=== PATIENT | male | born 1945 | race Caucasian/White ===

== ENCOUNTER 2021-09-03 11:55 | Inpatient (IN) | payer MEDICARE ==
[~2021-09-03] VITALS: Ht 182.9 cm; Wt 87.1 kg
[2021-09-03 12:30] LABS: BASO % 0.2 % (0.0-1.0); HEMATOCRIT 52.8 % (42.0-52.0); HEMOGLOBIN 17.3 g/dl (13.5-17.5); LYMPH # 0.9 10^3/uL (1.5-5.0); LYMPH % 7.3 % (24.0-44.0); MEAN CORPUSCULAR HGB CONC 32.8 g/dl (32.0-36.5); MEAN CORPUSCULAR VOLUME 91.5 fl (80.0-96.0); MONO # 0.6 10^3/uL (0.0-0.8); NEUTROPHILS # 10.3 10^3/uL (1.5-8.5); NEUTROPHILS % 86.4 % (36.0-66.0); PLATELET COUNT, AUTOMATED 263 10^3/uL (150-450); RED BLOOD COUNT 5.77 10^6/uL (4.30-6.10); WHITE BLOOD COUNT 11.9 10^3/uL (4.0-10.0)
--- NOTE | 2021-09-03 12:31 | REP ---
INDICATION: Coronavirus workup. COMPARISON: None. TECHNIQUE: AP portable seated FINDINGS: Lung dickson show patchy peripheral infiltrates in the right mid lung zone, infrahilar right lower lobe and in the left lower lung zone just lateral to the heart border some underlying interstitial fibrotic changes are suggested. There is no pleural effusion. Heart not grossly enlarged. There is no pulmonary edema. The aorta is without gross aneurysm.. Some degenerative changes are noted in the spine and shoulders. No free air under the diaphragm. IMPRESSION: 1. Some underlying fibrosis but with superimposed patchy infiltrates in both lungs, some of them arrayed peripherally. These findings could certainly reflect effects of COVID pneumonia. No effusion. Heart and mediastinal contours unremarkable. No joselito edema. <Electronically signed by Saul Wilson > 09/03/21 [id number]
[2021-09-03 12:35] LABS: ABG BASE EXCESS 1.5 (-2.0-2.0); ABG O2 SATURATION 93.3 % (95.0-99.0); ABG PARTIAL PRESSURE CO2 29.1 mmHg (35.0-45.0); ABG PARTIAL PRESSURE O2 59.7 mmHg (75.0-100.0); ABG STANDARD HCO3 25.6 MEQ/L (22.0-26.0); ABG TOTAL CO2 23.9 MEQ/L (23.0-31.0); ABG pH (ARTERIAL) 7.516 UNITS (7.350-7.450)
[2021-09-03 13:17] LABS: ALBUMIN 2.7 GM/DL (3.2-5.2); ALT/SGPT 64 U/L (12-78); BILIRUBIN,TOTAL 1.4 MG/DL (0.2-1.0); BLOOD UREA NITROGEN 26 MG/DL (7-18); CALCIUM LEVEL 8.7 MG/DL (8.8-10.2); CARBON DIOXIDE LEVEL 27 MEQ/L (21-32); CHLORIDE LEVEL 98 MEQ/L (98-107); CK-MB VALUE MASS < 1.0 NG/ML (<3.6); CPK CREATINE PHOSPHOKINASE 124 U/L (39-308); CREATININE FOR GFR 1.06 MG/DL (0.70-1.30); FERRITIN 2528 NG/ML (26-388); GLOMERULAR FILTRATION RATE > 60.0 (>42); GLUCOSE, FASTING 114 MG/DL (70-100); LDH LACTATE DEHYDROGENASE 658 U/L (87-241); MB/CK RELATIVE INDEX 0.81 (< OR =4); POTASSIUM SERUM 4.2 MEQ/L (3.5-5.1); SODIUM LEVEL 134 MEQ/L (136-145); TOTAL PROTEIN 6.6 GM/DL (6.4-8.2); TROPONIN I 0.04 NG/ML (< 0.10)
[2021-09-03] MEDS ORDERED: VITMTA PO (13:22)
[2021-09-03] MEDS ORDERED: ISOVUE-370 76% 100ML VIAL As Ordered ONE (13:25)
[2021-09-03] MEDS ORDERED: HOME MED LIST COMPLETE! XX SCH (13:25)
--- OUTSIDE RECORDS SUMMARY | 2021-09-03 13:32 | CCD ---
Author Author [facility] Address Unknown Phone Unavailable Support Name Relationship Address Phone SELF Next Of Kin Unknown Unavailable ARTURO MOSQUEDA Next Of Kin [address] [place], [place] [id number] SUJIT MOSQUEDA Next Of Kin [address] [place] [address] Re-disclosure Warning The records that you are about to access may contain information from federally-assisted alcohol or drug abuse programs. If such information is present, then the following federally mandated warning applies: This information has been disclosed to you from records protected by federal confidentiality rules (42 CFR part 2). The federal rules prohibit you from making any further disclosure of this information unless further disclosure is expressly permitted by the written consent of the person to whom it pertains or as otherwise permitted by 42 CFR part 2. A general authorization for the release of medical or other information is NOT sufficient for this purpose. The Federal rules restrict any use of the information to criminally investigate or prosecute any alcohol or drug abuse patient.The records that you are about to access may contain highly sensitive health information, the redisclosure of which is protected by Article 27-F of the [facility] Public Health law. If you continue you may have access to information: Regarding HIV / AIDS; Provided by facilities licensed or operated by the [facility] Office of Mental Health; or Provided by the [facility] Office for People With Developmental Disabilities. If such information is present, then the following [facility] mandated warning applies: This information has been disclosed to you from confidential records which are protected by state law. State law prohibits you from making any further disclosure of this information without the specific written consent of the person to whom it pertains, or as otherwise permitted by law. Any unauthorized further disclosure in violation of state law may result in a fine or skilled nursing sentence or both. A general authorization for the release of medical or other information is NOT sufficient authorization for further disc losure. Medications No Information Insurance Providers Payer name Policy type / Coverage type Policy ID Covered constitution party ID Covered constitution party's relationship to murray Policy Murray Plan Information MEDICARE [id number] SP [id number] Problems, Conditions, and Diagnoses No Information Surgeries/Procedures No Information Results No Information Social History No Information
--- NOTE | 2021-09-03 14:18 | REP ---
INDICATION: COVID hypoxia, r/o PE. COMPARISON: Chest x-ray 09/03/2021. TECHNIQUE: CT angiogram chest performed following the intravenous administration of 75 cc of Isovue 370. Sagittal and coronal standard and MIP reconstruction images are provided. FINDINGS: Lungs: Patchy and confluent alveolar infiltrates are noted throughout the lung dickson, more dramatically demonstrated a than on the chest x-ray very dense right upper lobe, left upper lobe and infrahilar/lower lobe areas as on radiograph but other patchy and predominantly peripheral infiltrates seen I do not see pleural effusions. No pleural thickening or calcified pleural plaques. No definite nodules. Mediastinum: AP window, precarinal, right paratracheal and subcarinal adenopathy near cm in size noted. Smaller were right paratracheal nodes are seen. Pulmonary arteries: The main, right and left pulmonary arteries in the mediastinum show no filling defect. Visible lobar arteries are also without filling defects. Misregistration artifacts from respiratory motion limit evaluation of segmental and subsegmental arteries. Betty: Up to 10 mm nodes at the right hilum and 10.5 mm at the left. Axilla: No pathologic sized adenopathy. Pleura: No effusion, calcified pleural plaques or pleural based mass. Heart: Not grossly enlarged but there is some left atrial enlargement. No pericardial thickening or effusion. Thoracic aorta: Atherosclerotic plaque at the arch without aneurysm or dissection. Upper abdominal structures: There is no hiatal hernia. Fatty change of the liver noted. No gross hepatosplenomegaly or focal lesion. No ascites portion of gallbladder, pancreas, upper poles of the kidney and bowel loops seen were unremarkable. Visualized osseous structures: Marginal osteophytes throughout the thoracic spine with no compression deformity or destructive lesion. Sternum, manubrium, ribs, medial clavicles, visualized portions of the scapula and humeral head seen were unremarkable. IMPRESSION: No CT evidence of pulmonary embolism in the mediastinal and lobar pulmonary arteries. Respiratory motion causing misregistration artifact severely limits the segmental and subsegmental artery evaluation. Extensive bilateral confluent and patchy infiltrates scattered throughout the lung dickson, many of them arrayed peripherally. This pattern is commonly seen in COVID pneumonia. There is no effusion, pneumothorax, calcified pleural plaque or other acute lung finding. Some mediastinal hilar adenopathy as described, felt to be reactive. Aorta without aneurysm or dissection. Some degenerative changes in the spine without acute bony findings. Upper abdominal structures grossly unremarkable. <Electronically signed by Saul Wilson > 09/03/21 [id number]
[2021-09-03] MEDS ORDERED: NS 1,000 ML IV ONE (15:15)
--- OUTSIDE RECORDS SUMMARY | 2021-09-03 15:15 | CCD ---
Author Author [facility] Address Unknown Phone Unavailable Support Name Relationship Address Phone SELF Next Of Kin Unknown Unavailable ARTURO MOSQUEDA Next Of Kin [address] [place], [place] [id number] SUJIT MOSQUEDA Next Of Kin [address] [place] [address] Re-disclosure Warning The records that you are [...] is protected by Article 27-F of the [facility] Public Health law. If you continue you may have access to information: Regarding HIV / AIDS; Provided by facilities licensed or operated by the [facility] Office of Mental Health; or Provided by the [facility] Office for People With Developmental Disabilities. If such information is present, then the following [facility] mandated warning applies: This information has been [...] law may result in a fine or alf sentence or both. A general authorization for the release of medical or other information is NOT sufficient authorization for further disc losure. Medications No Information Insurance Providers Payer name Policy type / Coverage type Policy ID Covered republican ID Covered republican's relationship to murray Policy Murray Plan Information MEDICARE [id number] SP [id number] Problems, Conditions, and Diagnoses No Information Surgeries/Procedures No Information Results No Information Social History No Information
[2021-09-03] MEDS ORDERED: LABETALOL 100MG/20ML VIAL IV PRN (15:20)
--- NOTE | 2021-09-03 15:29 | HPEPDOC ---
General Date of Admission Sep 03, 2021 at 15:03 Date of Service: Sep 03, 2021 Chief Complaint The patient is a 76-year-old male admitted with a reason for visit of Acute Hypoxemic Respiratory Failure Due To Covid19. Source: Patient History of Present Illness Patient is 76 years old male without significant past medical history who did not see it doctors for years presented to hospital with generalized weakness. Patient stated that he has been having generalized weakness for past week associated with some dry intermittent cough. He is generalized weakness became progressively worse for past 3 to 4 days. In ER patient was found to have hypoxia with oxygen saturation around 70s he was placed on the 6 L of oxygen via nasal cannula. He systolic blood pressure was elevated to 177, and he was tachycardic with heart rate 110, white blood count of 11.9, D-dimer 3161, lactic acid 2.8, CT showed No CT evidence of pulmonary embolism in the mediastinal and lobar pulmonary arteries. Respiratory motion causing misregistration artifact severely limits the segmental and subsegmental artery evaluation. Extensive bilateral confluent and patchy infiltrates scattered throughout the lung dickson, many of them arrayed peripherally. Patient was tested positive for COVID-19 Home Medications Scheduled Multivitamins (Thera M Plus Tablet) 1 Each Tablet, 1 TAB PO DAILY, (Reported) Allergies Coded Allergies: No Known Allergies (Unverified , 09/03/21) Past Medical History Medical History No significant medical history Family History I personally reviewed family history and found not pertinent Social History * Smoker: Denies Alcohol: Denies Drugs: denies A-FIB/CHADSVASC A-FIB History Current/History of A-Fib/PAF?: No Current PO Anticoag Therapy: No Review of Systems Constitutional: Reports: Weakness, Fatigue; Denies: Fever Eyes: Denies: Pain ENT: Denies: Head Aches Skin: Denies: Rash Pulmonary: Reports: Dyspnea, Cough Cardiovascular: Denies: Chest Pain Gastrointestinal: Denies: Nausea Genitourinary: Denies: Dysuria Hematologic: Denies: Bruising Endocrine: Denies: Polydipsia Musculoskeletal: Denies: Neck Pain Neurological: Denies: Weakness Psych: Reports: Mood Normal Physical Examination General Exam: Positive: Alert, Cooperative Eye Exam: Positive: PERRLA ENT Exam: Positive: Atraumatic Neck Exam: Positive: Supple; Negative: JVD Chest Exam: Positive: Diminished Heart Exam: Positive: Tachycardic; Negative: Rate Normal Telemetry: Positive: Sinus Abdomen Exam: Positive: Normal bowel sounds Extremity Exam: Negative: Clubbing Skin Exam: Positive: Nl turgor and temperature Neuro Exam: Positive: Normal Gait Psych Exam: Positive: Mental status NL Vital Signs Vital Signs Date Time Temp Pulse Resp B/P (MAP) Pulse Ox O2 Delivery O2 Flow Rate FiO2 09/03/21 15:00 109 172/81 (111) 09/03/21 14:45 24 91 Nasal Cannula 6.0 09/03/21 12:10 97.5 Laboratory Data Labs 24H Laboratory Tests 2 09/03/21 12:17: Immature Granulocyte % (Auto) 1.1, Neutrophils (%) (Auto) 86.4H, Lymphocytes (%) (Auto) 7.3L, Monocytes (%) (Auto) 5.0, Eosinophils (%) (Auto) 0.0, Basophils (%) (Auto) 0.2, Neutrophils # (Auto) 10.3H, Lymphocytes # (Auto) 0.9L, Monocytes # (Auto) 0.6, Eosinophils # (Auto) 0.0, Basophils # (Auto) 0.0, Nucleated Red Blood Cells % (auto) 0.0, D-Dimer, Quantitative 3161.89H, Anion Gap 9, Glomerular Filtration Rate > 60.0, Lactic Acid Level 2.8*H, Calcium Level 8.7L, Ferritin 2528H, Total Bilirubin 1.4H, Aspartate Amino Transf (AST/SGOT) 77H, Alanine Aminotransferase (ALT/SGPT) 64, Alkaline Phosphatase 52, Lactate Dehydrogenase 658H, Total Creatine Kinase 124, Creatine Kinase MB < 1.0, Creatine Kinase MB Relative Index 0.81, Troponin I 0.04, C-Reactive Protein, Quantitative 17.30H, Total Protein 6.6, Albumin 2.7L, Albumin/Globulin Ratio 0.7 09/03/21 12:19: Blood Gas Bicarbonate Standard 25.6, Arterial Blood pH 7.516H, Arterial Blood P artial Pressure CO2 29.1L, Arterial Blood Partial Pressure O2 59.7L, Arterial Blood Total CO2 23.9, Arterial Blood HCO3 23.0, Arterial Blood Base Excess 1.5, Arterial Blood Oxygen Saturation 93.3L CBC/BMP Laboratory Tests 09/03/21 12:17 Microbiology Microbiology 09/03/21 Blood Culture, Received Pending 09/03/21 Respiratory Virus Panel (PCR) (SANDRA) - Final, Complete SARS-CoV-2 (COVID 19) 09/03/21 Blood Culture, Received Pending Assessment/Plan Patient is 76 years old male without significant past medical history who did not see it doctors for years presented to hospital with generalized weakness. P atient stated that he has been having generalized weakness for past week associated with some dry intermittent cough. He is generalized weakness became progressively worse for past 3 to 4 days. In ER patient was found to have hypoxia with oxygen saturation around 70s he was placed on the 6 L of oxygen via nasal cannula. He systolic blood pressure was elevated to 177, and he was tachycardic with heart rate 110, white blood count of 11.9, D-dimer 3161, lactic acid 2.8, CT showed No CT evidence of pulmonary embolism in the mediastinal and lobar pulmonary arteries. Respiratory motion causing misregistration artifact severely limits the segmental and subsegmental artery evaluation. Extensive b ilateral confluent and patchy infiltrates scattered throughout the lung dickson, many of them arrayed peripherally. Patient was tested positive for COVID-19 Problems (1) Acute hypoxemic respiratory failure due to COVID-19 Status: Acute Problem Text: Secondary to COVID-19 Labs according to COVID-19 protocol Baricitinib, dexamethasone IV, remdesivir IV Encouraged for prone position PT/OT (2) Pneumonia due to COVID-19 virus Status: Acute Problem Text: See above Incentive spirometry (3) Hypertensive urgency Status: Acute Problem Text: Labetalol IV as needed Lisinopril 20 mg (4) ARDS (adult respiratory distress syndrome) Status: Acute Problem Text: Secondary to COVID-19 pneumonia Patient has bilateral opacities increased oxygen requirements to 6 L of oxygen Plan / VTE VTE Prophylaxis Ordered?: Yes AURA HAYDEN DO Sep 03, 2021 15:29
[2021-09-03 15:34] VITALS: BP 166/70
[2021-09-03] MEDS: dexameTHASONE 4 MG/ML 1ML VIAL (J1100 PER 1MG) IV SCH (15:34)
[2021-09-03] MEDS: ACETAMINOPHEN TAB 650MG DOSE (2X325MG) PO PRN (15:40)
[2021-09-03 17:25] VITALS: BP 112/64; O2SAT 94
[2021-09-03] MEDS ORDERED: REMDESIVIR 200 MG in NS 250 ML IV ONE (19:00)
[2021-09-03] MEDS ORDERED: SODIUM CHLORIDE 0.9% INJ 10 ML SYR IV ONE (19:00)
[2021-09-03 20:00] VITALS: O2SAT 88
[2021-09-03 20:05] VITALS: O2SAT 90
[2021-09-03 20:10] VITALS: O2SAT 93
--- NOTE | 2021-09-03 20:28 | ECGEPIP ---
[facility] - ED Test Date: 2021-09-03 Pat Name: CARMENCITA MOSQUEDA Department: Room: - Gender: Male [employer] Driver: AMEE : 1945 Requested By: Jimmy Sampson Order Number: [id number] Reading MD: Jimmy Jimenez Measurements Intervals [place] Rate: 117 P: 24 VA: 146 QRS: -12 QRSD: 122 T: -1 QT: 342 QTc: 477 Interpretive Statements Sinus tachycardia with occasional premature ventricular complexes Right bundle branch block NO PRIORS FOR COMPARISON Electronically Signed on 09-03-2021 20:27:53 EST by Jimmy Jimenez
[2021-09-03] MEDS: BARICITINIB 2MG TABLET (OLUMIANT) FOR EUA PO SCH (21:07)
[2021-09-03] MEDS: ENOXAPARIN 40MG/0.4ML SYRINGE (J1650 PER 10MG) SC SCH (21:09)
[2021-09-03 21:15] VITALS: BP 107/63
[2021-09-04] VITALS (11 sets, daily range): BP systolic 130–135; BP diastolic 56–73; O2SAT 85–96
[2021-09-04] MEDS ORDERED: IPRATROPIUM 0.5MG/ALBUTEROL 2.5MG INH SOL UD 3ML (DUONEB) NEB PRN (05:10)
[2021-09-04 05:35] LABS: VENOUS BASE EXCESS 1.7 (-2.0-2.0); VENOUS HCO3 23.7 MEQ/L (23.0-27.0); VENOUS O2 SATURATION 85.6 % (60.0-80.0); VENOUS PARTIAL PRESSURE CO2 30.6 mmHg (38.0-50.0); VENOUS PARTIAL PRESSURE O2 45.6 mmHg (30.0-50.0); VENOUS PH 7.506 UNITS (7.330-7.430); VENOUS STANDARD HCO3 25.6 MEQ/L; VENOUS TOTAL CO2 24.6 MEQ/L (24.0-28.0)
[2021-09-04 05:46] LABS: BASO % 0.1 % (0.0-1.0); HEMATOCRIT 47.1 % (42.0-52.0); HEMOGLOBIN 15.7 g/dl (13.5-17.5); LYMPH % 9.8 % (24.0-44.0); MEAN CORPUSCULAR HEMOGLOBIN 30.4 pg (27.0-33.0); MEAN CORPUSCULAR HGB CONC 33.3 g/dl (32.0-36.5); MEAN CORPUSCULAR VOLUME 91.1 fl (80.0-96.0); MONO # 0.6 10^3/uL (0.0-0.8); MONO % 5.9 % (2.0-8.0); NEUTROPHILS # 8.5 10^3/uL (1.5-8.5); NEUTROPHILS % 83.1 % (36.0-66.0); PLATELET COUNT, AUTOMATED 251 10^3/uL (150-450); RED BLOOD COUNT 5.17 10^6/uL (4.30-6.10); WHITE BLOOD COUNT 10.2 10^3/uL (4.0-10.0)
[2021-09-04 06:13] LABS: ALBUMIN 2.1 GM/DL (3.2-5.2); ALT/SGPT 59 U/L (12-78); BILIRUBIN,TOTAL 0.9 MG/DL (0.2-1.0); BLOOD UREA NITROGEN 28 MG/DL (7-18); CALCIUM LEVEL 8.6 MG/DL (8.8-10.2); CARBON DIOXIDE LEVEL 28 MEQ/L (21-32); CHLORIDE LEVEL 105 MEQ/L (98-107); CREATININE FOR GFR 0.73 MG/DL (0.70-1.30); GLOMERULAR FILTRATION RATE > 60.0 (>42); GLUCOSE, FASTING 122 MG/DL (70-100); MAGNESIUM LEVEL 2.4 MG/DL (1.8-2.4); POTASSIUM SERUM 3.8 MEQ/L (3.5-5.1); SODIUM LEVEL 139 MEQ/L (136-145); TOTAL PROTEIN 6.1 GM/DL (6.4-8.2)
[2021-09-04 06:23] LABS: ABG BASE EXCESS -0.7 (-2.0-2.0); ABG HCO3 21.9 MEQ/L (22.0-26.0); ABG O2 SATURATION 88.4 % (95.0-99.0); ABG PARTIAL PRESSURE CO2 30.8 mmHg (35.0-45.0); ABG PARTIAL PRESSURE O2 51.7 mmHg (75.0-100.0); ABG STANDARD HCO3 23.7 MEQ/L (22.0-26.0); ABG TOTAL CO2 22.8 MEQ/L (23.0-31.0); ABG pH (ARTERIAL) 7.469 UNITS (7.350-7.450)
--- NOTE | 2021-09-04 06:46 | REPVR ---
PROCEDURE INFORMATION: Exam: XR Chest Exam date and time: 09/04/2021 6:26 AM Age: 76 years old Clinical indication: Cough; Additional info: Acute desat TECHNIQUE: Imaging protocol: XR of the chest. Views: 1 view. COMPARISON: CT ANGIO CHEST 09/03/2021 1:29 PM FINDINGS: Lungs: Extensive patchy bilateral ground-glass and reticulonodular opacities. Pleural spaces: Unremarkable. No pleural effusion. No pneumothorax. Heart/Mediastinum: Cardiomegaly. Bones/joints: Multilevel degenerative disease of the thoracic spine. Degenerative changes in the right shoulder. IMPRESSION: Extensive patchy bilateral ground-glass and reticulonodular opacities. Electronically signed by: Bernardo Eng On 09/04/2021 06:45:39 AM
[2021-09-04] MEDS: ENOXAPARIN 40MG/0.4ML SYRINGE (J1650 PER 10MG) SC SCH ×2 (08:21→21:27)
[2021-09-04] MEDS: BARICITINIB 2MG TABLET (OLUMIANT) FOR EUA PO SCH (08:22)
[2021-09-04] MEDS: guaiFENesin ER 600 MG TAB PO SCH ×2 (08:22→21:26)
[2021-09-04] MEDS: dexameTHASONE 4 MG/ML 1ML VIAL (J1100 PER 1MG) IV SCH (08:22)
--- NOTE | 2021-09-04 13:24 | IPNPDOC ---
Text Note Date of Service The patient was seen on 09/04/21. NOTE Subjective: No any acute events overnight. Patient's oxygen requirement sign ificantly increased, he is on 25 L FiO2 75%. Objective: GENERAL APPEARANCE: NAD HEENT: no scleral icterus, no JVD, EOMI CARDIOVASCULAR: S1S2 LUNGS: Diminished lung sounds bilaterally ABDOMEN: soft & not tender w palpation MUSCULOSKELETAL: no cyanosis, no swelling INTEGUMENT: no generalized pallor NEUROLOGICAL: cranial nerve function from 2-12 intact, follows commands, speech not dysarthric Assessment/Plan Patient is 76 years old male without significant past medical history who did not see it doctors for years presented to hospital with generalized weakness. Patient stated that he has been having generalized weakness for past week assoc iated with some dry intermittent cough. He is generalized weakness became progressively worse for past 3 to 4 days. In ER patient was found to have hypoxia with oxygen saturation around 70s he was placed on the 6 L of oxygen via nasal cannula. He systolic blood pressure was elevated to 177, and he was tachycardic with heart rate 110, white blood count of 11.9, D-dimer 3161, lactic acid 2.8, CT showed No CT evidence of pulmonary embolism in the mediastinal and lobar pulmonary arteries. Respiratory motion causing misregistration artifact severely limits the segmental and subsegmental artery evaluation. Extensive bilateral confluent and patchy infiltrates scattered throughout the lung dickson, many of them arrayed peripherally. Patient was tested positive for COVID-19 Problems (1) Acute hypoxemic respiratory failure due to COVID-19 Secondary to COVID-19 Labs according to COVID-19 protocol Baricitinib, dexamethasone IV, remdesivir IV day 1 Encouraged for prone position PT/OT (2) Pneumonia due to COVID-19 virus See above Incentive spirometry (3) Hypertensive urgency Resolved Labetalol IV as needed Lisinopril 20 mg (4) ARDS (adult respiratory distress syndrome) Secondary to COVID-19 pneumonia Patient has bilateral opacities increased oxygen requirements to 6 L of oxygen Plan / VTE VTE Prophylaxis Ordered?: Yes VS,Fishbone, I+O VS, Fishbone, I+O Laboratory Tests 09/04/21 05:27 Vital Signs Date Time Temp Pulse Resp B/P (MAP) Pulse Ox O2 Delivery O2 Flow Rate FiO2 09/04/21 10:52 93 HVNI-Vapotherm 25.0 75 09/04/21 06:00 97.4 92 22 133/72 (92) I&O- Last 24 Hours up to 6 AM 09/04/21 06:00 Intake Total 1790 ml Balance 1790 ml AURA HAYDEN DO Sep 04, 2021 13:24
[2021-09-04] MEDS: SODIUM CHLORIDE 0.9% INJ 10 ML SYR IV SCH (18:16)
[2021-09-04] MEDS: REMDESIVIR 100 MG in NS 250 ML IV SCH (18:16)
[2021-09-04] MEDS: ACETAMINOPHEN TAB 650MG DOSE (2X325MG) PO PRN (23:25)
[2021-09-05] VITALS: O2SAT 94
[2021-09-05 04:00] VITALS: BP 124/61; O2SAT 93
[2021-09-05 07:08] LABS: BASO % 0.1 % (0.0-1.0); EOS % 0.1 % (0.0-3.0); HEMATOCRIT 43.5 % (42.0-52.0); HEMOGLOBIN 14.6 g/dl (13.5-17.5); LYMPH # 1.1 10^3/uL (1.5-5.0); LYMPH % 7.7 % (24.0-44.0); MEAN CORPUSCULAR HEMOGLOBIN 30.6 pg (27.0-33.0); MEAN CORPUSCULAR HGB CONC 33.6 g/dl (32.0-36.5); MEAN CORPUSCULAR VOLUME 91.2 fl (80.0-96.0); MONO # 0.9 10^3/uL (0.0-0.8); MONO % 6.2 % (2.0-8.0); NEUTROPHILS # 12.5 10^3/uL (1.5-8.5); NEUTROPHILS % 84.9 % (36.0-66.0); PLATELET COUNT, AUTOMATED 272 10^3/uL (150-450); RED BLOOD COUNT 4.77 10^6/uL (4.30-6.10); WHITE BLOOD COUNT 14.7 10^3/uL (4.0-10.0)
[2021-09-05 07:24] LABS: INR 1.16; PROTHROMBIN TIME 15.2 SECONDS (12.7-14.5)
[2021-09-05 07:25] LABS: PARTIAL THROMBOPLASTIN TIME 31.4 SECONDS (25.9-37.0)
[2021-09-05 07:27] LABS: ALT/SGPT 90 U/L (12-78); BILIRUBIN,DIRECT 0.5 MG/DL (0.0-0.2); BILIRUBIN,TOTAL 0.9 MG/DL (0.2-1.0); BLOOD UREA NITROGEN 28 MG/DL (7-18); CALCIUM LEVEL 8.3 MG/DL (8.8-10.2); CARBON DIOXIDE LEVEL 25 MEQ/L (21-32); CHLORIDE LEVEL 106 MEQ/L (98-107); CPK CREATINE PHOSPHOKINASE 91 U/L (39-308); CREATININE FOR GFR 0.72 MG/DL (0.70-1.30); FERRITIN 1777 NG/ML (26-388); GLOMERULAR FILTRATION RATE > 60.0 (>42); GLUCOSE, FASTING 98 MG/DL (70-100); LDH LACTATE DEHYDROGENASE 406 U/L (87-241); NT-PRO BNP 512 PG/ML (<450); POTASSIUM SERUM 3.7 MEQ/L (3.5-5.1); SODIUM LEVEL 137 MEQ/L (136-145); TOTAL PROTEIN 5.8 GM/DL (6.4-8.2); TROPONIN I 0.03 NG/ML (< 0.10)
[2021-09-05] MEDS: BARICITINIB 2MG TABLET (OLUMIANT) FOR EUA PO SCH (08:38)
[2021-09-05] MEDS: guaiFENesin ER 600 MG TAB PO SCH ×2 (08:38→19:56)
[2021-09-05] MEDS: ENOXAPARIN 40MG/0.4ML SYRINGE (J1650 PER 10MG) SC SCH ×2 (08:38→19:56)
[2021-09-05] MEDS: dexameTHASONE 4 MG/ML 1ML VIAL (J1100 PER 1MG) IV SCH (08:38)
--- NOTE | 2021-09-05 13:44 | IPNPDOC ---
Text Note Date of Service The patient was seen on 09/05/21. NOTE Subjective: No any acute events overnight. Patient's oxygen requirements 25 L FiO2 60%. Patient reported insomnia Objective: GENERAL APPEARANCE: NAD HEENT: no scleral icterus, no JVD, EOMI CARDIOVASCULAR: S1S2 LUNGS: Diminished lung sounds bilaterally ABDOMEN: soft & not tender w palpation MUSCULOSKELETAL: no cyanosis, no swelling INTEGUMENT: no generalized pallor NEUROLOGICAL: cranial nerve function from 2-12 intact, follows commands, speech not dysarthric Assessment/Plan Patient is 76 years old male without significant past medical history who did not see it doctors for years presented to hospital with generalized weakness. Patient stated that he has been having generalized weakness for past week associated with some dry intermittent cough. He is generalized weakness became progressively worse for past 3 to 4 days. In ER patient was found to have hypoxia with oxygen saturation around 70s he was placed on the 6 L of oxygen via nasal cannula. He systolic blood pressure was elevated to 177, and he was tachycardic with heart rate 110, white blood count of 11.9, D-dimer 3161, lactic acid 2.8, CT showed No CT evidence of pulmonary embolism in the mediastinal and lobar pulmonary arteries. Respiratory motion causing misregistration artifact severely limits the segmental and subsegmental artery evaluation. Extensive bilateral confluent and patchy infiltrates scattered throughout the lung dickson, many of them arrayed peripherally. Patient was tested positive for COVID-19 Problems (1) Acute hypoxemic respiratory failure due to COVID-19 Secondary to COVID-19 Labs according to COVID-19 protocol Baricitinib, dexamethasone IV, remdesivir IV day 2 Encouraged for prone position PT/OT (2) Pneumonia due to COVID-19 virus See above Incentive spirometry (3) Hypertensive urgency Resolved Labetalol IV as needed Lisinopril 20 mg (4) ARDS (adult respiratory distress syndrome) Secondary to COVID-19 pneumonia Insomnia Rozerem nightly Plan / VTE VTE Prophylaxis Ordered?: Yes VS,Belkis, I+O VS, Axelbone, I+O Laboratory Tests 09/05/21 06:45 09/05/21 06:46 Vital Signs Date Time Temp Pulse Resp B/P (MAP) Pulse Ox O2 Delivery O2 Flow Rate FiO2 09/05/21 08:40 25.0 60 09/05/21 04:00 98.2 100 18 124/61 (82) 94 09/05/21 04:00 HVNI-Vapotherm I&O- Last 24 Hours up to 6 AM 09/05/21 05:59 Intake Total 960 ml Output Total 1350 ml Balance -390 ml AURA HAYDEN DO Sep 05, 2021 13:44
[2021-09-05 14:00] VITALS: BP 124/71
[2021-09-05] MEDS: REMDESIVIR 100 MG in NS 250 ML IV SCH (18:37)
[2021-09-05] MEDS: SODIUM CHLORIDE 0.9% INJ 10 ML SYR IV SCH (18:38)
[2021-09-05] MEDS: RAMELTEON 8 MG TAB (ROZEREM) PO SCH (19:56)
[2021-09-05 22:00] VITALS: BP 114/65
[2021-09-06 06:00] VITALS: BP 126/54
[2021-09-06 08:00] LABS: BASO % 0.3 % (0.0-1.0); EOS % 0.2 % (0.0-3.0); HEMATOCRIT 44.7 % (42.0-52.0); HEMOGLOBIN 14.6 g/dl (13.5-17.5); LYMPH # 1.4 10^3/uL (1.5-5.0); LYMPH % 9.5 % (24.0-44.0); MEAN CORPUSCULAR HEMOGLOBIN 30.3 pg (27.0-33.0); MEAN CORPUSCULAR HGB CONC 32.7 g/dl (32.0-36.5); MEAN CORPUSCULAR VOLUME 92.7 fl (80.0-96.0); MONO # 0.9 10^3/uL (0.0-0.8); MONO % 5.9 % (2.0-8.0); NEUTROPHILS # 12.2 10^3/uL (1.5-8.5); NEUTROPHILS % 82.9 % (36.0-66.0); PLATELET COUNT, AUTOMATED 284 10^3/uL (150-450); RED BLOOD COUNT 4.82 10^6/uL (4.30-6.10); WHITE BLOOD COUNT 14.7 10^3/uL (4.0-10.0)
[2021-09-06 08:08] LABS: BLOOD UREA NITROGEN 26 MG/DL (7-18); CALCIUM LEVEL 8.3 MG/DL (8.8-10.2); CARBON DIOXIDE LEVEL 26 MEQ/L (21-32); CHLORIDE LEVEL 107 MEQ/L (98-107); CREATININE FOR GFR 0.68 MG/DL (0.70-1.30); GLOMERULAR FILTRATION RATE > 60.0 (>42); GLUCOSE, FASTING 88 MG/DL (70-100); POTASSIUM SERUM 3.7 MEQ/L (3.5-5.1); SODIUM LEVEL 138 MEQ/L (136-145)
[2021-09-06] MEDS: BARICITINIB 2MG TABLET (OLUMIANT) FOR EUA PO SCH (09:13)
[2021-09-06] MEDS: dexameTHASONE 4 MG/ML 1ML VIAL (J1100 PER 1MG) IV SCH (09:13)
[2021-09-06] MEDS: guaiFENesin ER 600 MG TAB PO SCH ×2 (09:13→21:26)
[2021-09-06] MEDS: ENOXAPARIN 40MG/0.4ML SYRINGE (J1650 PER 10MG) SC SCH ×2 (09:13→21:27)
--- NOTE | 2021-09-06 13:21 | IPNPDOC ---
Text Note Date of Service The patient was seen on 09/06/21. NOTE Subjective: No any acute events overnight. Patient's oxygen requirements 25 L FiO2 60%. Patient stated that he slept good Objective: GENERAL APPEARANCE: NAD HEENT: no scleral icterus, no JVD, EOMI CARDIOVASCULAR: S1S2 LUNGS: Diminished lung sounds bilaterally ABDOMEN: soft & not tender w palpation MUSCULOSKELETAL: no cyanosis, no swelling INTEGUMENT: no generalized pallor NEUROLOGICAL: cranial nerve function from 2-12 intact, follows commands, speech not dysarthric Assessment/Plan Patient is 76 years old male without significant past medical history who did not see it doctors for years presented to hospital with generalized weakness. Patient stated that he has been having generalized weakness for past week as sociated with some dry intermittent cough. He is generalized weakness became progressively worse for past 3 to 4 days. In ER patient was found to have hypoxia with oxygen saturation around 70s he was placed on the 6 L of oxygen via nasal cannula. He systolic blood pressure was elevated to 177, and he was tachycardic with heart rate 110, white blood count of 11.9, D-dimer 3161, lactic acid 2.8, CT showed No CT evidence of pulmonary embolism in the mediastinal and lobar pulmonary arteries. Respiratory motion causing misregistration artifact severely limits the segmental and subsegmental artery evaluation. Extensive bilateral confluent and patchy infiltrates scattered throughout the lung dickson, many of them arrayed peripherally. Patient was tested positive for COVID-19 Problems (1) Acute hypoxemic respiratory failure due to COVID-19 Secondary to COVID-19 Labs according to COVID-19 protocol Baricitinib, dexamethasone IV, remdesivir IV day 3 Encouraged for prone position PT/OT (2) Pneumonia due to COVID-19 virus See above Incentive spirometry (3) Hypertensive urgency/hypertension Resolved Blood pressure under control Labetalol IV as needed Lisinopril 20 mg (4) ARDS (adult respiratory distress syndrome) Secondary to COVID-19 pneumonia Insomnia Rozerem nightly Plan / VTE VTE Prophylaxis Ordered?: Yes VS,Fishbone, I+O VS, Fishbone, I+O Laboratory Tests 09/06/21 06:57 Vital Signs Date Time Temp Pulse Resp B/P (MAP) Pulse Ox O2 Delivery O2 Flow Rate FiO2 09/06/21 09:15 25.0 55 09/06/21 09:15 92 HVNI-Vapotherm 11/10/21 06:00 98.0 82 18 126/54 (78) I&O- Last 24 Hours up to 6 AM0 09/06/21 05:59 Intake Total 1290 ml Output Total 1650 ml Balance -360 ml AURA HAYDEN DO Sep 06, 2021 13:21
[2021-09-06 14:00] VITALS: BP 106/56
[2021-09-06] MEDS: REMDESIVIR 100 MG in NS 250 ML IV SCH (18:25)
[2021-09-06] MEDS: SODIUM CHLORIDE 0.9% INJ 10 ML SYR IV SCH (18:25)
[2021-09-06 19:56] VITALS: O2SAT 94
[2021-09-06 20:00] VITALS: BP 140/75
[2021-09-06] MEDS: RAMELTEON 8 MG TAB (ROZEREM) PO SCH (21:27)
[2021-09-07] VITALS (10 sets, daily range): BP systolic 112–146; BP diastolic 53–66; O2SAT 92–98
[2021-09-07 07:47] LABS: BASO % 0.2 % (0.0-1.0); EOS % 0.2 % (0.0-3.0); LYMPH # 1.3 10^3/uL (1.5-5.0); LYMPH % 8.5 % (24.0-44.0); MEAN CORPUSCULAR HEMOGLOBIN 30.4 pg (27.0-33.0); MEAN CORPUSCULAR HGB CONC 32.6 g/dl (32.0-36.5); MEAN CORPUSCULAR VOLUME 93.3 fl (80.0-96.0); MONO # 0.8 10^3/uL (0.0-0.8); MONO % 5.4 % (2.0-8.0); NEUTROPHILS % 84.1 % (36.0-66.0); PLATELET COUNT, AUTOMATED 318 10^3/uL (150-450); RED BLOOD COUNT 4.61 10^6/uL (4.30-6.10); WHITE BLOOD COUNT 15.5 10^3/uL (4.0-10.0)
[2021-09-07 08:02] LABS: INR 1.18; PROTHROMBIN TIME 15.5 SECONDS (12.7-14.5)
[2021-09-07 08:03] LABS: PARTIAL THROMBOPLASTIN TIME 34.2 SECONDS (25.9-37.0)
[2021-09-07 08:20] LABS: ALBUMIN 2.1 GM/DL (3.2-5.2); ALT/SGPT 137 U/L (12-78); BILIRUBIN,DIRECT 0.4 MG/DL (0.0-0.2); BILIRUBIN,TOTAL 0.9 MG/DL (0.2-1.0); BLOOD UREA NITROGEN 23 MG/DL (7-18); CARBON DIOXIDE LEVEL 25 MEQ/L (21-32); CHLORIDE LEVEL 105 MEQ/L (98-107); CPK CREATINE PHOSPHOKINASE 55 U/L (39-308); CREATININE FOR GFR 0.65 MG/DL (0.70-1.30); FERRITIN 1742 NG/ML (26-388); GLOMERULAR FILTRATION RATE > 60.0 (>42); GLUCOSE, FASTING 81 MG/DL (70-100); LDH LACTATE DEHYDROGENASE 389 U/L (87-241); NT-PRO BNP 867 PG/ML (<450); POTASSIUM SERUM 4.3 MEQ/L (3.5-5.1); SODIUM LEVEL 138 MEQ/L (136-145); TOTAL PROTEIN 5.3 GM/DL (6.4-8.2); TROPONIN I < 0.02 NG/ML (< 0.10)
[2021-09-07] MEDS: dexameTHASONE 4 MG/ML 1ML VIAL (J1100 PER 1MG) IV SCH (08:58)
[2021-09-07] MEDS: BARICITINIB 2MG TABLET (OLUMIANT) FOR EUA PO SCH (08:58)
[2021-09-07] MEDS: ENOXAPARIN 40MG/0.4ML SYRINGE (J1650 PER 10MG) SC SCH ×2 (08:58→20:27)
--- NOTE | 2021-09-07 13:37 | IPNPDOC ---
Text Note Date of Service The patient was seen on 09/07/21. NOTE Subjective: No any acute events overnight. Patient's oxygen requirements 15 L FiO2 50%. Patient reported that she feels better today Objective: GENERAL APPEARANCE: NAD HEENT: no scleral icterus, no JVD, EOMI CARDIOVASCULAR: S1S2 LUNGS: Diminished lung sounds bilaterally ABDOMEN: soft & not tender w palpation MUSCULOSKELETAL: no cyanosis, no swelling INTEGUMENT: no generalized pallor NEUROLOGICAL: cranial nerve function from 2-12 intact, follows commands, speech not dysarthric Assessment/Plan Patient is 76 years old male without significant past medical history who did not see it doctors for years presented to hospital with generalized weakness. Patient stated that he has been having generalized weakness for past week associated with some dry intermittent cough. He is generalized weakness became progressively worse for past 3 to 4 days. In ER patient was found to have hypoxia with oxygen saturation around 70s he was placed on the 6 L of oxygen via nasal cannula. He systolic blood pressure was elevated to 177, and he was tachycardic with heart rate 110, white blood count of 11.9, D-dimer 3161, lactic acid 2.8, CT showed No CT evidence of pulmonary embolism in the mediastinal and lobar pulmonary arteries. Respiratory motion causing misregistration artifact severely limits the segmental and subsegmental artery evaluation. Extensive bilateral confluent and patchy infiltrates scattered throughout the lung dickson, many of them arrayed peripherally. Patient was tested positive for COVID-19 Problems (1) Acute hypoxemic respiratory failure due to COVID-19 Secondary to COVID-19 Labs according to COVID-19 protocol Baricitinib, dexamethasone IV, remdesivir IV day 4 Encouraged for prone position PT/OT (2) Pneumonia due to COVID-19 virus See above Incentive spirometry (3) Hypertensive urgency/hypertension Resolved Blood pressure under control Labetalol IV as needed Lisinopril 20 mg (4) ARDS (adult respiratory distress syndrome) Secondary to COVID-19 pneumonia Insomnia Rozerem nightly Plan / VTE VTE Prophylaxis Ordered?: Yes VS,Axelbone, I+O VS, Fishbone, I+O Laboratory Tests 09/07/21 06:07 Vital Signs Date Time Temp Pulse Resp B/P (MAP) Pulse Ox O2 Delivery O2 Flow Rate FiO2 09/07/21 12:00 94 HVNI-Vapotherm 15.0 50 09/07/21 04:00 96.9 78 18 146/66 (92) I&O- Last 24 Hours up to 6 AM 09/07/21 06:00 Intake Total 200 ml Output Total 1200 ml Balance -1000 ml AURA HAYDEN DO Sep 07, 2021 13:37
[2021-09-07] MEDS: RAMELTEON 8 MG TAB (ROZEREM) PO SCH (20:27)
[2021-09-07] MEDS: REMDESIVIR 100 MG in NS 250 ML IV SCH (20:27)
[2021-09-07] MEDS: SODIUM CHLORIDE 0.9% INJ 10 ML SYR IV SCH (20:36)
[2021-09-08 04:00] VITALS: BP 130/70; O2SAT 97
[2021-09-08 07:46] LABS: HEMATOCRIT 43.2 % (42.0-52.0); HEMOGLOBIN 14.1 g/dl (13.5-17.5); MEAN CORPUSCULAR HEMOGLOBIN 29.9 pg (27.0-33.0); MEAN CORPUSCULAR HGB CONC 32.6 g/dl (32.0-36.5); MEAN CORPUSCULAR VOLUME 91.5 fl (80.0-96.0); PLATELET COUNT, AUTOMATED 347 10^3/uL (150-450); RED BLOOD COUNT 4.72 10^6/uL (4.30-6.10); WHITE BLOOD COUNT 13.9 10^3/uL (4.0-10.0)
[2021-09-08 08:14] LABS: BLOOD UREA NITROGEN 23 MG/DL (7-18); CALCIUM LEVEL 8.6 MG/DL (8.8-10.2); CARBON DIOXIDE LEVEL 28 MEQ/L (21-32); CHLORIDE LEVEL 106 MEQ/L (98-107); CREATININE FOR GFR 0.59 MG/DL (0.70-1.30); GLOMERULAR FILTRATION RATE > 60.0 (>42); GLUCOSE, FASTING 83 MG/DL (70-100); POTASSIUM SERUM 4.2 MEQ/L (3.5-5.1); SODIUM LEVEL 139 MEQ/L (136-145)
[2021-09-08 08:41] LABS: ATYPICAL LYMPH 2 % (0-5); BASOPHILS 1 % (0-1); LYMPHOCYTES 8 % (16-44); MONOCYTES 6 % (0-5); NEUTROPHILS 81 % (28-66)
[2021-09-08 08:42] LABS: PLATELET ESTIMATE NORMAL (NORMAL)
[2021-09-08] MEDS: dexameTHASONE 4 MG/ML 1ML VIAL (J1100 PER 1MG) IV SCH (10:28)
[2021-09-08] MEDS: BARICITINIB 2MG TABLET (OLUMIANT) FOR EUA PO SCH (10:28)
[2021-09-08] MEDS: ENOXAPARIN 40MG/0.4ML SYRINGE (J1650 PER 10MG) SC SCH ×2 (10:29→21:25)
[2021-09-08 14:00] VITALS: BP 124/59
--- NOTE | 2021-09-08 14:50 | IPNPDOC ---
Text Note Date of Service The patient was seen on 09/08/21. NOTE Subjective: No any acute events overnight. Patient's oxygen requirements 8 L. Patient reported that she feels better today Objective: GENERAL APPEARANCE: NAD HEENT: no scleral icterus, no JVD, EOMI CARDIOVASCULAR: S1S2 LUNGS: Diminished lung sounds bilaterally ABDOMEN: soft & not tender w palpation MUSCULOSKELETAL: no cyanosis, no swelling INTEGUMENT: no generalized pallor NEUROLOGICAL: cranial nerve function from 2-12 intact, follows commands, speech not dysarthric Assessment/Plan Patient is 76 years old male without significant past medical history who did not see it doctors for years presented to hospital with generalized weakness. Patient stated that he has been having generalized weakness for past week as sociated with some dry intermittent cough. He is generalized weakness became progressively worse for past 3 to 4 days. In ER patient was found to have hypoxia with oxygen saturation around 70s he was placed on the 6 L of oxygen via nasal cannula. He systolic blood pressure was elevated to 177, and he was tachycardic with heart rate 110, white blood count of 11.9, D-dimer 3161, lactic acid 2.8, CT showed No CT evidence of pulmonary embolism in the mediastinal and lobar pulmonary arteries. Respiratory motion causing misregistration artifact severely limits the segmental and subsegmental artery evaluation. Extensive bilateral confluent and patchy infiltrates scattered throughout the lung dickson, many of them arrayed peripherally. Patient was tested positive for COVID-19 Problems (1) Acute hypoxemic respiratory failure due to COVID-19 Secondary to COVID-19 Labs according to COVID-19 protocol Baricitinib, dexamethasone IV, remdesivir IV day 5 Encouraged for prone position PT/OT (2) Pneumonia due to COVID-19 virus See above Incentive spirometry (3) Hypertensive urgency/hypertension Resolved Blood pressure under control Labetalol IV as needed Lisinopril 20 mg (4) ARDS (adult respiratory distress syndrome) Secondary to COVID-19 pneumonia Insomnia Rozerem nightly DVT prophylaxis continue with Lovenox VS,Fishbone, I+O VS, Fishbone, I+O Laboratory Tests 09/08/21 06:53 Vital Signs Date Time Temp Pulse Resp B/P (MAP) Pulse Ox O2 Delivery O2 Flow Rate FiO2 09/08/21 14:00 97.2 77 20 124/59 (80) 98 High Flow Cannula 8.0 09/07/21 21:00 50 I&O- Last 24 Hours up to 6 AM 09/08/21 05:59 Intake Total 1140 ml Output Total 1075 ml Balance 65 ml AURA HAYDEN DO Sep 08, 2021 14:50
[2021-09-08 20:00] VITALS: BP 121/66; O2SAT 95
[2021-09-08] MEDS: RAMELTEON 8 MG TAB (ROZEREM) PO SCH (21:25)
[2021-09-09 04:00] VITALS: BP_SYST 127; BP_SYST 141; BP_DIAS 72
[2021-09-09 06:10] LABS: BASO % 0.2 % (0.0-1.0); EOS % 0.1 % (0.0-3.0); HEMOGLOBIN 15.2 g/dl (13.5-17.5); LYMPH # 1.3 10^3/uL (1.5-5.0); LYMPH % 9.8 % (24.0-44.0); MEAN CORPUSCULAR HEMOGLOBIN 30.4 pg (27.0-33.0); MONO # 0.6 10^3/uL (0.0-0.8); MONO % 4.7 % (2.0-8.0); NEUTROPHILS # 10.4 10^3/uL (1.5-8.5); PLATELET COUNT, AUTOMATED 405 10^3/uL (150-450); WHITE BLOOD COUNT 12.9 10^3/uL (4.0-10.0)
[2021-09-09 06:20] LABS: INR 1.04
[2021-09-09 06:21] LABS: PARTIAL THROMBOPLASTIN TIME 32.5 SECONDS (25.9-37.0)
[2021-09-09 06:33] LABS: ALBUMIN 2.3 GM/DL (3.2-5.2); ALT/SGPT 139 U/L (12-78); BILIRUBIN,DIRECT 0.3 MG/DL (0.0-0.2); BILIRUBIN,TOTAL 0.6 MG/DL (0.2-1.0); BLOOD UREA NITROGEN 21 MG/DL (7-18); CALCIUM LEVEL 8.7 MG/DL (8.8-10.2); CARBON DIOXIDE LEVEL 27 MEQ/L (21-32); CHLORIDE LEVEL 106 MEQ/L (98-107); CPK CREATINE PHOSPHOKINASE 68 U/L (39-308); CREATININE FOR GFR 0.68 MG/DL (0.70-1.30); FERRITIN 1630 NG/ML (26-388); GLOMERULAR FILTRATION RATE > 60.0 (>42); GLUCOSE, FASTING 92 MG/DL (70-100); LDH LACTATE DEHYDROGENASE 307 U/L (87-241); NT-PRO BNP 551 PG/ML (<450); POTASSIUM SERUM 4.4 MEQ/L (3.5-5.1); SODIUM LEVEL 138 MEQ/L (136-145); TOTAL PROTEIN 6.4 GM/DL (6.4-8.2); TROPONIN I < 0.02 NG/ML (< 0.10)
[2021-09-09 08:00] VITALS: O2SAT 91
[2021-09-09] MEDS: BARICITINIB 2MG TABLET (OLUMIANT) FOR EUA PO SCH (08:33)
[2021-09-09] MEDS: dexameTHASONE 4 MG/ML 1ML VIAL (J1100 PER 1MG) IV SCH (08:33)
[2021-09-09] MEDS: ENOXAPARIN 40MG/0.4ML SYRINGE (J1650 PER 10MG) SC SCH (08:33)
[2021-09-09] MEDS ORDERED: PRED10TA2 PO (09:58)
--- NOTE | 2021-09-09 15:48 | DS.PDOC ---
Discharge Summary General Date of Admission Sep 03, 2021 at 15:03 Date of Discharge 09/09/21 Discharge Summary PROCEDURES PERFORMED DURING STAY: [None]. ADMITTING DIAGNOSES: Acute hypoxemic respiratory failure due to COVID-19/ ARDS Pneumonia due to COVID-19 virus Hypertensive urgency/hypertension DISCHARGE DIAGNOSES: Acute hypoxemic respiratory failure due to COVID-19/ ARDS Pneumonia due to COVID-19 virus Hypertensive urgency/hypertens Insomnia COMPLICATIONS/CHIEF COMPLAINT: Acute Hypoxemic Respiratory Failure Due To Covid19. HISTORY OF PRESENT ILLNESS: Patient is 76 years old male without significant past medical history who did not see it doctors for years presented to hospital with generalized weakness. Patient stated that he has been having generalized weakness for past week associated with some dry intermittent cough. He is generalized weakness became progressively worse for past 3 to 4 days. In ER patient was found to have hypoxia with oxygen saturation around 70s he was placed on the 6 L of oxygen via nasal cannula. He systolic blood pressure was elevated to 177, and he was tachycardic with heart rate 110, white blood count of 11.9, D-dimer 3161, lactic acid 2.8, CT showed No CT evidence of pulmonary embolism in the mediastinal and lobar pulmonary arteries. Respiratory motion causing misregistration artifact severely limits the segmental and subsegmental artery evaluation. Extensive bilateral confluent and patchy infiltrates scattered throughout the lung dickson, many of them arrayed peripherally. Patient was tested positive for COVID-19 HOSPITAL COURSE: During the hospital stay the following issue addressed (1) Acute hypoxemic respiratory failure due to COVID-19 Secondary to COVID-19 Patient received baricitinib, dexamethasone IV, remdesivir IV with positive effect. Patient has good oxygen saturation today on room air Encouraged for prone position PT/OT (2) Pneumonia due to COVID-19 virus See above Incentive spirometry (3) Hypertensive urgency/hypertension Resolved Blood pressure under control Labetalol IV as needed Lisinopril 20 mg (4) ARDS (adult respiratory distress syndrome) Secondary to COVID-19 pneumonia Insomnia DISCHARGE MEDICATIONS: Please see below. ALLERGIES: Please see below. PHYSICAL EXAMINATION ON DISCHARGE: VITAL SIGNS: Please see below. GENERAL APPEARANCE: NAD HEENT: no scleral icterus, no JVD, EOMI CARDIOVASCULAR: S1S2 LUNGS: Diminished lung sounds bilaterally ABDOMEN: soft & not tender w palpation MUSCULOSKELETAL: no cyanosis, no swelling INTEGUMENT: no generalized pallor NEUROLOGICAL: cranial nerve function from 2-12 intact, follows commands, speech not dysarthric LABORATORY DATA: Please see below. IMAGING: See above PROGNOSIS: Fair ACTIVITY: [As tolerated]. DIET: Regular DISPOSITION: 01 Home, Self-Care. ITEMS TO FOLLOWUP ON ON OUTPATIENT: Follow-up with PCP DISCHARGE CONDITION: [Stable]. TIME SPENT ON DISCHARGE: 40minutes. Vital Signs/I&Os Vital Signs Date Time Temp Pulse Resp B/P (MAP) Pulse Ox O2 Delivery O2 Flow Rate FiO2 09/09/21 08:00 91 Room Air 09/09/21 04:00 97.2 80 18 127/72 (90) 3.0 09/07/21 21:00 50 I&O- Last 24 Hours up to 6 AM 09/09/21 06:00 Intake Total 1870 ml Output Total 2150 ml Balance -280 ml Laboratory Data Labs 24H Laboratory Tests 2 09/09/21 05:37: Immature Granulocyte % (Auto) 4.2H, Neutrophils (%) (Auto) 81.0H, Lymphocytes (%) (Auto) 9.8L, Monocytes (%) (Auto) 4.7, Eosinophils (%) (Auto) 0.1, Basophils (%) (Auto) 0.2, Neutrophils # (Auto) 10.4H, Lymphocytes # (Auto) 1.3L, Monocytes # (Auto) 0.6, Eosinophils # (Auto) 0.0, Basophils # (Auto) 0.0, Nucleated Red Blood Cells % (auto) 0.0, Prothrombin Time 14.0, Prothromb Time International Ratio 1.04, Activated Partial Thromboplast Time 32.5, Fibrinogen 568H, Anion Gap 5L, Glomerular Filtration Rate > 60.0, Calcium Level 8.7L, Ferritin 1630H, Total Bilirubin 0.6, Direct Bilirubin 0.3H, Aspartate Amino Transf (AST/SGOT) 58H, Alanine Aminotransferase (ALT/SGPT) 139H, Alkaline Phosphatase 76, Lactate Dehydrogenase 307H, Total Creatine Kinase 68, Troponin I < 0.02, VW-Uvw-C-Type Natriuretic Peptide 551H, Total Protein 6.4#, Albumin 2.3L, Albumin/Globulin Ratio 0.6 CBC/BMP Laboratory Tests 09/09/21 05:37 Microbiology Microbiology 09/03/21 Blood Culture - Final, Complete NO GROWTH AFTER 5 DAYS 09/03/21 Respiratory Virus Panel (PCR) ([facility]) - Final, Complete SARS-CoV-2 (COVID 19) 09/03/21 Blood Culture - Final, Complete NO GROWTH AFTER 5 DAYS Discharge Medications Scheduled Multivitamins (Thera M Plus Tablet) 1 Each Tablet, 1 TAB PO DAILY, (Reported) Prednisone (Prednisone) 10 Mg Tablet, 10 MG PO TAPER Take 4 tabs daily x 3 days, then 3 tabs daily x 3 days, then 2 tabs daily x 3 days, then 1 tab daily x 3 days and stop Allergies Coded Allergies: No Known Allergies (Unverified , 09/03/21) AURA HAYDEN DO Sep 09, 2021 15:48
== END 2021-09-09 12:56 | disposition home or self-care (01) | DRG 177 ==
LOC: EDBD 11:55 → M ED 11:55 → M ED INP 15:03 → ENRESERV 16:34 → M 4MAIN 17:25
PROVIDERS: ADMIT Internal Medicine; ATTEND Internal Medicine
DX: U07.1 COVID-19 (principal); J12.82 Pneumonia due to coronavirus disease 2019; J96.01 Acute respiratory failure with hypoxia; I16.0 Hypertensive urgency; I10 Essential (primary) hypertension; G47.00 Insomnia, unspecified